=== PATIENT | female | born 1970 | race Caucasian/White ===

== ENCOUNTER 2019-07-15 04:55 | Emergency (ER) | payer MEDICAID ==
[~2019-07-15] VITALS: Ht 162.6 cm; Wt 64.4 kg
[~2019-07-15 04:55] MED LIST: CEPH-443 PO; HYDR-4011 PO; IBUP-1542 PO
[2019-07-15 04:58] VITALS: Ht 162.6 cm; Wt 64.4 kg
[2019-07-15] MEDS ORDERED: morphine 4 MG/ML VIAL IV STA (05:25)
[2019-07-15] MEDS ORDERED: SOD CHLORIDE 0.9% 1,000 ML IV STA (05:25)
[2019-07-15] MEDS ORDERED: KETOROLAC 15 MG INJ IV STA (05:25)
[2019-07-15] MEDS ORDERED: ONDANSETRON 4 MG INJ IV STA (05:25)
[2019-07-15 07:27] VITALS: BP 95/64; PULSE 60; RESP 18
== END 2019-07-15 09:24 | disposition home or self-care (01) ==
LOC: E/R 04:55
DX: R10.9 Unspecified abdominal pain (principal); R11.0 Nausea
CPT/HCPCS: 76775; 80053; 81001; 81025; 83690; 85025; 96374; 96375; J1885; J2270; J2405; J7030; Z7502